=== PATIENT | female | born 1990 | race Caucasian/White ===

== ENCOUNTER 2020-10-05 14:53 | Emergency (ER) | payer MEDICAID, OTHER ==
[~2020-10-05] VITALS: Ht 167.6 cm; Wt 62.3 kg
--- NOTE | 2020-10-05 15:16 | NUR ---
PT AT THIS TIME NOT CONSENTING TO VAGINAL EXAM FROM PROVIDER. OFFICERS AT THIS TIME ATTEMPTING TO GET A COURT ORDER FOR EXAM.
--- NOTE | 2020-10-05 16:00 | NUR ---
report taken from RAY hopson, care assumed at this time. stefania at bedside x 2.
--- NOTE | 2020-10-05 16:15 | NUR ---
this RN and female gaurd chaperoned pelvic exam done by RANDELL Kramer. no foreign body identified.
--- NOTE | 2020-10-05 16:38 | NUR ---
pt instructed to provide urine sample, pt up to bathroom at this time with female jimena.
--- NOTE | 2020-10-05 17:01 | NUR ---
PT BACK IN BED. URINE SENT TO LAB. LAL AT BEDSIDE X 2. PT A&O, RESPS EVEN AND UNLABORED, NADN. PT HAS NO COMPLAINT. PT TO HAVE US, PER US TECH, BLADDER MUST BE FULL. PT GIVEN LARGE PO FLUIDS PER RANDELL SMITH'S ORDER.
[2020-10-05 17:18] LABS: AMPHETAMINE SCREEN, URINE Positive (Negative); BARBITURATE SCREEN, URINE Negative (Negative); BENZODIAZEPINE SCREEN, URINE Negative (Negative); CANNABINOID SCREEN, URINE Negative (Negative); COCAINE SCREEN, URINE Negative (Negative); METHADONE SCREEN, URINE Negative (Negative); OPIATE SCREEN, URINE Negative (Negative)
--- NOTE | 2020-10-05 17:23 | NUR ---
PT HAS CONSUMED PO FLUIDS AND STATES BLADDER IS FULL. US NOTIFIED TO COLLECT PT.
--- NOTE | 2020-10-05 17:30 | NUR ---
us at bedside.
--- NOTE | 2020-10-05 17:59 | NUR ---
all results back, chart up for recheck, awaiting MD and dispo.
[2020-10-05 18:47] VITALS: BP 115/72
== END 2020-10-05 18:49 | disposition home or self-care (01) ==
LOC: ED 17:51
DX: R10.2 Pelvic and perineal pain (principal); F15.10 Other stimulant abuse, uncomplicated; R00.0 Tachycardia, unspecified
CPT/HCPCS: 76856; 80307; 99285